=== PATIENT | male | born 1945 | race Hispanic/Latino ===

== ENCOUNTER → 2018-12-31 | Outpatient (CLI) | payer OTHER ==
[~2018-12-31] MED LIST: ATOR40TA69 PO; CHOL100018 PO; CINN500C PO; DOCU-272 PO; ENAL20TA PO; FERR-82 PO; GABA-531 PO; GLIP5TAB11 PO; METF-446 PO; NAPR-1023 PO; OMEG-125 PO; PIOG45TA64 PO; VIT1CAPS47 PO
== END | disposition home or self-care (01) ==
LOC: OIH 10:03
PROVIDERS: ATTEND Internal Medicine Hematology & Oncology
DX: M79.89 Other specified soft tissue disorders (principal); C49.9 Malignant neoplasm of connective and soft tissue, unspecified; C61 Malignant neoplasm of prostate; D64.81 Anemia due to antineoplastic chemotherapy; D64.9 Anemia, unspecified; D68.9 Coagulation defect, unspecified
CPT/HCPCS: 73610; 73630

== ENCOUNTER → 2019-01-02 | Outpatient (CLI) | payer MEDICARE | END | disposition home or self-care (01) | LOC: RAH 12:26 | PROVIDERS: ATTEND Internal Medicine Hematology & Oncology | DX: D68.9 Coagulation defect, unspecified (principal) | CPT/HCPCS: 93971 ==

== ENCOUNTER 2020-05-23 13:47 | Emergency (ER) | payer MEDICARE ==
[~2020-05-23 13:47] MED LIST changes: -ENAL20TA PO; +ENAL20TA18 PO; -NAPR-1023 PO
== END 2020-05-23 14:26 | disposition home or self-care (01) ==
LOC: EDH 13:47
DX: L23.1 Allergic contact dermatitis due to adhesives (principal); E11.9 Type 2 diabetes mellitus without complications; E78.00 Pure hypercholesterolemia, unspecified; I10 Essential (primary) hypertension; Z87.891 Personal history of nicotine dependence; Z88.6 Allergy status to analgesic agent

== ENCOUNTER 2025-06-28 19:02 | Emergency (ER) | payer OTHER, MEDICARE ==
[~2025-06-28] VITALS: Ht 167.6 cm; Wt 85.3 kg
[~2025-06-28 19:02] MED LIST changes: -DOCU-272 PO; +DOCU-403 PO; +ENAL-91 PO; -ENAL20TA18 PO; -GLIP5TAB11 PO; +GLIP5TAB15 PO
[2025-06-28 19:11] VITALS: BP 161/94; PULSE 70; RESP 18; TEMP 97.8; O2SAT 99
[2025-06-28] MEDS ORDERED: FAMO-136 PO (20:01)
[2025-06-28] MEDS ORDERED: LORA10TA7 PO (20:01)
[2025-06-28] MEDS ORDERED: CEPH500B PO (20:01)
--- NOTE | 2025-06-28 20:01 | ERN ---
ED Note History of Present Illness Stated Complaint: INSECT BITE Chief Complaint: Insect Bite Time Seen by MD: 19:13 Time Seen by Midlevel: 19:13 Dictation: The patient is an 79-year-old male with a history of hypertension, hyperlipidemia who presents to the emergency department with complaints of insect bite to his left hand onset 4:00 p.m.. Patient reports he was putting in some gloves when something bit him but he is not sure what bit him. Patient reports some pain to the area. Reports he is up-to-date with tetanus. Patient reports he wash his hands with soap and water at home. Allergies: Coded Allergies: No Known Allergies (Unverified Allergy, Unknown, 01/04/15) Uncoded Allergies: UNABLE TO RECALL (Allergy, Unknown, 06/28/25) Home Meds Reported Medications Glipizide (Glipizide) 5 Mg Tablet, 2.5 MG PO DAILY, TAB 01/10/19 Atorvastatin Calcium (LIPITOR) 40 Mg Tablet, 20 MG PO HS, TAB 01/10/19 Enalapril Maleate (Enalapril Maleate) 20 Mg Tablet, 10 MG PO HS, TAB 12/22/18 Pioglitazone HCl (Pioglitazone HCl) 45 Mg Tablet, 45 MG PO DAILY, TAB 11/21/18 Cholecalciferol (Vitamin D3) (Vitamin D3) 1,000 Unit Tablet, 1000 UNIT PO DAILY, TAB 11/21/18 Ferrous Sulfate (Iron) 325 Mg Tablet, 325 MG PO DAILY, TAB 11/21/18 Enalapril Maleate (Enalapril Maleate) 20 Mg Tablet, 20 MG PO DAILY, TAB 11/21/18 Metformin HCl (Metformin HCl) 1,000 Mg Tablet, 1000 MG PO BID, TAB 11/21/18 [place]-3S/Dha/Epa/Fish Oil (Fish Oil [place]-3 Softgel) 1 Each Capsule.dr, 1 EACH PO BID, CAP 11/21/18 Vit C/E/Zn/Coppr/Lutein/Zeaxan (Preservision Areds 2 Softgel) 1 Each Capsule, 1 EACH PO BID, CAP 11/21/18 Docusate Sodium (Stool Softener) 100 Mg Capsule, 100 MG PO DAILY, CAP 11/21/18 Gabapentin (Gabapentin) 300 Mg Capsule, 300 MG PO BID, CAP 11/21/18 Cinnamon Bark (Cinnamon) 500 Mg Capsule, 1000 MG PO BID, CAP 11/21/18 Past Medical History Past Medical History: Diabetes-Type II, High Cholesterol, Hypertension, Other Additional Past Medical Hx: PROSTATE CANCER Surgical History: Other Surgical History Other: PROSTATE RN Note Reviewed/Agreed w/PFSH: Yes Review of System Dictation Constitutional: Negative for fever,chills, and weight loss Eyes: Negative for injury, pain,redness, and discharge ENT: Negative for injury,pain or swelling Cardiovascular: Negative for chest pain, palpitations, and edema Respiratory: Negative for shortness of breath, cough, and wheezing, Abdomen/GI: Negative for abdominal pain, nausea, vomiting, diarrhea, and constipation Back: Negative for injury and pain : Negative for injury, bleeding and discharge MS/Extremity: Negative for injury and deformity Skin: Positive for insect bite Neuro: Negative for headache, weakness, numbness, tingling, and seizure Psych: Negative for suicide ideation, homicidal ideation, and hallucinations Initial Vital Sign VS Vital Signs Date Time Temp Pulse Resp B/P (MAP) Pulse Ox O2 Delivery O2 Flow Rate FiO2 06/28/25 19:05 97.9 70 18 161/94 99 Room Air 06/28/25 19:11 0 21 Physical Exam Dictation Vital Signs reviewed General Appearance: Alert, oriented x 3, no acute distress, well developed, nourished. Head and Face: non-traumatic. Eyes: PERRL, pink conjunctivas, eyelid no trauma, anterior chamber with arcus senilis. Ears: Pinnas intact and no signs of trauma or erythema ear canals clear and no discharge TM no erythema Nose: No discharge, no bleeding. Oropharynx: Mouth normal, tongue pink. pharynx clear,no erythema, tonsils no exudates, no abscesses noted, mucous membrane moist Neck: Supple, non-tender, no thyromegaly, no masses, no JVD, no bruits Breast:Deferred Chest:No tenderness, no crepitus, no paradoxical movement, no retractions Lungs:Clear, well-ventilated, symmetric, no rales, no wheezing, no rhonchi, no stridor, good breath sounds bilaterally Heart: Regular rate, regular rhythm, no murmur, no gallops Vascular: no peripheral edema, Abdomen: Soft, positive bowel sounds, nondistended, no guarding, nontender, no rebound, no masses no hepatomegaly, no splenomegaly, no Flynn's sign, no hernias. Rectal: Deferred Genital: Deferred Neurological: Normal speech, motor function intact, sensory function intact Musculoskeletal: Neck nontender, full range of motion, back nontender, full range of motion, Extremities: nontender, full range of motion Skin: Color pink, dry, no turgor, no lacerations, no abrasions, no contusions. Erythema noted in between 2nd and 3rd digit. Lymphatic: Deferred Results (Laboratory/Radiology) Labs Reviewed?: Yes ED Course ED Course Orders Procedure Category Date Status Time Ketorolac PHA 06/28/25 In Process Tromethamine 15mg/Ml 20:00 Current Medications Medications (Trade) Dose Ordered Sig/Gualberto Route PRN Reason Start Time Stop Time Status Last Admin Dose Admin Ketorolac Tromethamine (toRADol) 15 mg ONCE ONCE IM 06/28/25 20:00 06/28/25 20:01 Vital Signs Date Time Temp Pulse Resp B/P (MAP) Pulse Ox O2 Delivery O2 Flow Rate FiO2 06/28/25 19:11 97.9 70 18 161/94 99 Room Air* 0 21 06/28/25 19:05 97.9 70 18 161/94 99 Room Air Medical Decision Making MDM The patient is an 79-year-old male with a history of hypertension, hyperlipidemia who presents to the emergency department with complaints of insect bite to his left hand onset 4:00 p.m.. Patient reports he was putting in some gloves when something bit him but he is not sure what bit him. Patient reports some pain to the area. Reports he is up-to-date with tetanus. Patient reports he wash his hands with soap and water at home. Patient with a small area of erythema in between 2nd and 3rd digit. There is no welt or obvious puncture wounds to the area. Patient otherwise in no acute distress, no respiratory compromise, stable vital signs. Patient reports he is driving home so unable to give any Benadryl. Patient otherwise with clear lung sounds, no swelling to throat. Patient only with a local reaction. Patient up-to-date with tetanus. Patient will be discharged to follow up with PCP. Differential diagnosis: Allergic reaction, insect bite, cellulitis Need for hospitalization: Patient does not meet criteria for hospitalization. There are no social concerns with this patient. DX & DISP Disposition: Discharge Departure Impression: Primary Impression: Insect bite Condition: Stable Scripts Loratadine (Loratadine) 10 Mg Tablet 1 TAB PO DAILY for allergy symptoms for 7 Days, #20 TAB 0 Refills Prov: SEUN CONNELLY 06/28/25 Famotidine (Pepcid) 20 Mg Tablet 1 TAB PO BID for 7 Days, #14 TAB 0 Refills Prov: SEUN CONNELLYP 06/28/25 Cephalexin Monohydrate (Keflex) 500 Mg Cap 500 MG PO QID for 5 Days, #20 CAP Prov: SEUN CONNELLY 06/28/25 Additional Instructions: Please follow up with your primary doctor in 1-2 days. Take your medications as prescribed. If you develop severe respiratory distress, fevers or if anything worsens please return to ER. FOLLOW-UP WITH PRIMARY CARE PROVIDER IN 1 TO 2 DAYS. TAKE MEDICATIONS DIRECTED HERE IN THE EMERGENCY ROOM. OKAY TO CONTINUE HOME MEDICATIONS UNLESS OTHERWISE DISCUSSED DURING YOUR VISIT IN THE EMERGENCY ROOM TODAY. RETURN TO YOUR NEAREST EMERGENCY ROOM IF SYMPTOMS WORSEN OR IF THERE IS NO IMPROVEMENT. CALL 911 IF YOU NEED IMMEDIATE ASSISTANCE. TAKE TYLENOL [id number] NEEDED AND IF NO CONTRAINDICATIONS ARE PRESENT. INCREASE ORAL HYDRATION. A WOUND CULTURE OR URINE CULTURE WAS ORDERED HERE IN THE EMERGENCY ROOM DEPARTMENT PLEASE FOLLOW-UP WITH PRIMARY CARE PROVIDER AND ADVISE THEM TO GET REPEAT PORTS FROM OUR FACILITY. IF YOU HAD ANY OMAIRA WRAP/SPLINTS THAT WERE APPLIED HERE, PLEASE DO NOT REMOVE THEM UNTIL YOU SEE YOUR PRIMARY CARE OR SPECIALTY. Referrals: LYNDA TOBIAS MD (PCP) Time of Disposition: 19:59 I have reviewed the case, and I agree with, Diagnosis and Plan SEUN CONNELLYP Jun 28, 2025 20:01
== END 2025-06-28 20:03 | disposition home or self-care (01) ==
LOC: EDH 19:02
DX: S60.562A Insect bite (nonvenomous) of left hand, initial encounter (principal); E11.9 Type 2 diabetes mellitus without complications; E78.00 Pure hypercholesterolemia, unspecified; I10 Essential (primary) hypertension; Z79.84 Long term (current) use of oral hypoglycemic drugs; Z79.899 Other long term (current) drug therapy; W57.XXXA Bitten or stung by nonvenomous insect and other nonvenomous arthropods, initial encounter; Y93.89 Activity, other specified; Y92.89 Other specified places as the place of occurrence of the external cause; Y99.8 Other external cause status
CPT/HCPCS: 99283; 96372; J1885